=== PATIENT | male | born 1945 | race Caucasian/White ===

== ENCOUNTER → 2016-04-20 | Outpatient (CLI) | payer OTHER ==
[~2016-04-20] MED LIST: INDSR/120 PO; LISI-725 PO
[2016-04-20 12:26] LABS: HEMATOCRIT 44.4 % (42-52); MEAN CORPUSCULAR HEMOGLOBIN 30.9 pg (25-34); MEAN CORPUSCULAR HGB CONC 34.7 g/dl (32-36); MEAN PLATELET VOLUME 11.6 fL (7.4-10.4); PLATELET COUNT 227 K/uL (130-400); RED BLOOD COUNT 4.99 M/uL (4.7-6.1); WHITE BLOOD COUNT 5.82 K/uL (4.8-10.8)
[2016-04-20 13:13] LABS: ESTIMATED AVERAGE GLUCOSE 120 mg/dl; HA1C FLAG Normal (Normal)
[2016-04-20 13:46] LABS: ALKALINE PHOSPHATASE 88 U/L (45-117); ALT/SGPT 27 U/L (12-78); AST/SGOT 25 U/L (15-37); BLOOD UREA NITROGEN 15 mg/dl (7-18); BUN/CREATININE RATIO 18.1 (10-20); CARBON DIOXIDE 23 mmol/L (21-32); CHLORIDE 105 mmol/L (98-107); CREATININE 0.82 mg/dl (0.60-1.40); GLUCOSE 109 mg/dl (70-99); POTASSIUM 3.9 mmol/L (3.5-5.1); SODIUM 139 mmol/L (136-145)
[2016-04-20 13:58] LABS: CHOLESTEROL 123 mg/dl (0-200); CHOLESTEROL/HDL RATIO 3.5; HDL CHOLESTEROL 35 mg/dl; LDL CHOLESTEROL CALCULATED 36 mg/dl; TRIGLYCERIDES 258 mg/dl (0-150); VERY LOW DENSITY LIPOPROT CALC 52 mg/dl
== END | disposition home or self-care (01) ==
LOC: C.LABBFT 07:34
PROVIDERS: ATTEND Internal Medicine
DX: R73.01 Impaired fasting glucose (principal)

== ENCOUNTER → 2016-07-03 | Outpatient (CLI) | payer OTHER ==
--- NOTE | 2016-07-03 14:56 | DIAGNOSTIC IMAGING REPORT ---
CHEST 2 VIEWS ROUTINE CLINICAL HISTORY: COUGH dyspnea COMPARISON STUDY: None FINDINGS: Mild cardia megaly. Lungs are clear. Diaphragms smooth. Costophrenic angles are sharp. IMPRESSION: Mild cardiomegaly. Otherwise negative study Electronically signed by: Ruiz Mitchell M.D. 07/03/2016 2:54 PM Dictated Date/Time: 07/03/2016 2:53 PM
== END | disposition home or self-care (01) ==
LOC: C.RAD1850 14:22
PROVIDERS: ATTEND Internal Medicine
DX: R05 Cough (principal); I51.7 Cardiomegaly

== ENCOUNTER → 2016-11-13 | Outpatient (CLI) | payer OTHER ==
[2016-11-13 12:33] LABS: HEMATOCRIT 47.7 % (42-52); MEAN CELL VOLUME 89.5 fL (80-100); MEAN CORPUSCULAR HGB CONC 34.6 g/dl (32-36); PLATELET COUNT 252 K/uL (130-400); RED BLOOD COUNT 5.33 M/uL (4.7-6.1); WHITE BLOOD COUNT 6.71 K/uL (4.8-10.8)
[2016-11-13 12:48] LABS: ESTIMATED AVERAGE GLUCOSE 123 mg/dl; HA1C FLAG Normal (Normal)
[2016-11-13 12:52] LABS: ALT/SGPT 35 U/L (12-78); AST/SGOT 31 U/L (15-37); BLOOD UREA NITROGEN 16 mg/dl (7-18); BUN/CREATININE RATIO 17.3 (10-20); CALCIUM 9.3 mg/dl (8.5-10.1); CARBON DIOXIDE 27 mmol/L (21-32); CHLORIDE 104 mmol/L (98-107); CREATININE 0.93 mg/dl (0.60-1.40); GLUCOSE 114 mg/dl (70-99); SODIUM 138 mmol/L (136-145)
[2016-11-13 13:03] LABS: ALB/GLOB RATIO 0.9 (0.9-2); ALKALINE PHOSPHATASE 101 U/L (45-117); CHOLESTEROL 190 mg/dl (0-200); CHOLESTEROL/HDL RATIO 6.1; HDL CHOLESTEROL 31 mg/dl; TRIGLYCERIDES 422 mg/dl (0-150)
== END | disposition home or self-care (01) ==
LOC: C.LABBFT 07:41
PROVIDERS: ATTEND Internal Medicine
DX: E78.5 Hyperlipidemia, unspecified (principal); E03.9 Hypothyroidism, unspecified; R73.01 Impaired fasting glucose; Z12.5 Encounter for screening for malignant neoplasm of prostate; I10 Essential (primary) hypertension

== ENCOUNTER → 2017-06-10 | Outpatient (CLI) | payer OTHER ==
[2017-06-10 17:08] LABS: ALBUMIN 3.3 gm/dl (3.4-5.0); ALT/SGPT 29 U/L (12-78); BLOOD UREA NITROGEN 17 mg/dl (7-18); CALCIUM 9.1 mg/dl (8.5-10.1); CARBON DIOXIDE 30 mmol/L (21-32); CHOLESTEROL 160 mg/dl (0-200); GLUCOSE 103 mg/dl (70-99); POTASSIUM 4.2 mmol/L (3.5-5.1); SODIUM 135 mmol/L (136-145)
[2017-06-10 17:18] LABS: ALKALINE PHOSPHATASE 110 U/L (45-117); AST/SGOT 24 U/L (15-37); TOTAL PROTEIN 9.2 gm/dl (6.4-8.2)
[2017-06-11 07:31] LABS: HEMOGLOBIN A1C 6.3 % (4.5-5.6)
== END | disposition home or self-care (01) ==
LOC: C.LABBFT 14:09
PROVIDERS: ATTEND Internal Medicine
DX: E78.5 Hyperlipidemia, unspecified (principal); E03.9 Hypothyroidism, unspecified; R73.01 Impaired fasting glucose

== ENCOUNTER 2024-02-17 16:59 | Inpatient (IN) ==
--- NOTE | 2024-02-17 17:25 | Emergency Department Note ---
Impression & Plan Left inguinal hernia, Hypoxia ED Provider Note Provider: Manoj Toney MD CHIEF COMPLAINT: Stool issues HISTORY OF PRESENT ILLNESS: Patient is a 78-year-old gentleman history of A-fib on Eliquis, hypertension, hypothyroidism, and chronic lower extremity swelling on furosemide presenting here today referred from the outpatient clinic. Patient evidently over the past week or so initially had some constipation issues. Has had some nausea and vomiting at times. Has been trying to maintain good hydration utilizing [id number] laxative/MiraLAX, prune juice, and fiber with only some small liquid stool passing. Does report he said some chronic swelling in his legs as well as some testicular swelling. Family state this has been ongoing for some time and maybe little better than normal. No significant chest pain or fevers reported. No trauma reported. Has lost over 10 pounds in the past week or so. Has been hydrating well but cannot really eat solid foods. Denies cough or cold symptoms. Prior appendectomy reported but no other significant abdominal surgeries and no history of bowel obstruction reported. Referred here with concern for possible obstruction. PAST MEDICAL HISTORY: As noted above MEDICATIONS: Reviewed home medications SOCIAL HISTORY: PHYSICAL EXAM: GENERAL: alert and oriented in no acute distress on stretcher Head: normocephalic and atraumatic EYES: No injection, discharge or icterus. NECK: Trachea midline. ENT: Mucous membranes pink and moist. LUNGS: Airway patent. No retractions. Breath sounds clear with good air entry bilaterally. HEART: Regular rate and rhythm. No chest wall tenderness ABDOMEN: Soft and non-tender, without guarding or rebound. No significant peritonitis. Large swelling of the scrotum appreciable but not particularly tender. SKIN: Acyanotic, warm,without rashes EXTREMITIES: Without tenderness or deformity with 1-2+ edema the bilateral lower extremities. NEUROLOGICAL: No focal deficits. No aphasia. No facial droop or slurred speech. Ambulatory. EK bpm atrial fibrillation with right bundle branch block. No acute ST segment elevation with nonspecific T wave changes and a QTc of 484. CONTINUOUS CARDIAC MONITORING: was ordered and showed a heart rate of 70s-80s bpm in atrial fibrillation Patient's laboratory studies and imaging reviewed. Differential includes Appendicitis (although reports prior removal) , testicular torsion, infections, diverticulitis, UTI, obstruction, mesenteric ischemia, aortic pathology, inflammatory bowel disease, renal colic, PUD, pancreatitis, biliary pathology, hernia, volvulus, constipation, as well as other pathologies. IMPRESSION/MEDICAL DECISION MAKING: Patient well-appearing in no distress. Hypertensive here but not hypoxic, tachycardic, or febrile. Has had about a week constipation with nausea and vomiting not tolerating food 0 well but has been able to take his meds. Mild abdominal discomfort at times but not severe and not particularly tender. Some chronic swelling that he relates not particular worse lower extremities and scrotum. Will obtain CT of the abdomen pelvis and basic blood work. Blood work here without severe electrolyte abnormality or signs of renal dysfunction. No significant transaminitis or lipase elevations doubt hepatitis or pancreatitis. Troponin normal. BNP minimally elevated 184. No significant anemia noted today or leukocytosis on CBC. Sent for abdominal CT and per radiology report shows a left inguinal hernia mild inflammatory change without bowel obstruction. No pneumatosis is reported. Mild left hydroureter/hydronephrosis from the hernia with cholelithiasis. This likely explains a fair amount of the scrotal swelling the patient is complaining of. Little bit of borderline hypoxia while he was here likely positioning related as he did not receive narcotics. Anticoagulated doubt VTE. Doubt pneumonia but a chest x-ray was obtained to exclude this and do not see it based on my interpretation. Did discuss with Dr. Richardson general surgery the CT findings of a large hernia. Again does not seem incarcerated or strangulated at this point no obstruction. Certainly this large hernia and changes of positioning could cause ongoing issues. Given his issues with tolerating oral intake and again this borderline hypoxia here today we will bring into the medical service for optimization. Did attempt to reposition the patient in bed. Do question if there is a touch of fluid overload for the patient on x-ray. Will need to hold his anticoagulation for possible surgical intervention. DIAGNOSIS: Left inguinal hernia, hypoxia, A-fib, long-term anticoagulation DISPOSITION: Hospitalist will evaluate Patient was agreeable with this plan. Past Med/Surg History Problem List (Updated 02/17/24 @ 21:13 by Mayte Salinas MD) Hydronephrosis Hypoxia (Acute) Left inguinal hernia (Acute) Elderly person living alone At risk for self-care problem Hypercalcemia Atrial fibrillation (Chronic) Hypertension (Chronic) Hypercholesteremia (Chronic) Hypothyroidism (Chronic) Impaired fasting glucose (Chronic) Bilateral lower extremity edema Daytime somnolence Venous insufficiency of both lower extremities Learning difficulty Medical History A-fib Benign familial tremor Distal radius fracture, left Dyslipidemia Hand laceration Hyperglobulinemia Hyperlipidemia Hypertension Hypothyroidism Impaired fasting glucose Insomnia Night terror On anticoagulant therapy Onychomycosis Surgical History History of cataract surgery History of open reduction and internal fixation (ORIF) procedure History of tooth extraction History of tonsillectomy History of appendectomy Family History Brother Family history of diabetes mellitus Myocardial infarction Other No family history of adverse response to anesthesia Denies family history of Ovarian cancer Prostate cancer Breast cancer Colorectal cancer Social History Smoking Status: Never smoker Tobacco Type: Pipe and Smokeless Tobacco (Dip or Chew) Second Hand Exposure: No; Do You Dip or Chew Tobacco: No; Hx Alcohol Use: No Hx Substance Use: No Preferred Language: French Communication Ability: Effective Visual Impairment: No Limitations Hearing Ability: Normal Trimmer Climber Required: No Beliefs That Will Affect Care: None marital status: Single Current Living Situation: Alone Current Living Situation Comment: friend Rosi comes in during day, he is home alone at night current occupational status: retired 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 Feels Safe at Home: Yes Childhood Exposure to Second-Hand Smoke: Yes Diet: regular caffeine: Yes Dental Care, Regularly: Yes Physical Activity Frequency: Daily Seatbelt Use: always Sunscreen Use: No Assistive Devices: Denture - Upper, Denture - Lower and Glasses Allergies Allergies Allergy/AdvReac Type Severity Reaction Status Date / Time Penicillins Allergy Mild RASH Verified 02/06/24 14:12 Home Meds Home Medications Medication Instructions Recorded Confirmed multivitamin 1 tab PO QAM 11/05/18 02/17/24 Previous Rx's Medication Instructions Recorded fenofibrate nanocrystallized 48 mg 48 mg PO QAM #90 tabs 04/09/23 tablet (Tricor) metoprolol succinate 25 mg 25 mg PO DAILY #90 tabs 07/04/23 tablet,extended release 24 hr losartan 100 mg tablet 100 mg PO DAILY #90 tabs 07/18/23 levothyroxine 75 mcg tablet 75 mcg PO QAM #90 tabs 08/27/23 potassium chloride 10 mEq See Rx Instructions .Route 10/14/23 capsule,extended release .COMPLEX #90 caps amlodipine 5 mg tablet 5 mg PO DAILY 90 days #90 tabs 02/05/24 apixaban 5 mg tablet (Eliquis) 5 mg PO BID #180 tabs 02/05/24 rosuvastatin 20 mg tablet 20 mg PO DAILY #90 tabs 02/05/24 furosemide 40 mg tablet 40 mg PO BID edema #60 tabs 02/14/24 Results & Data (ED) Vital Signs Vital Signs - 24 hr 02/17/24 17:02 02/17/24 17:24 02/17/24 17:25 Temperature 36.6 C Temperature Source Temporal Artery Scan Pulse Rate 87 80 Pulse Rate [Left Apical] 95 H Pulse Rhythm Regular Respiratory Rate 18 18 20 Respiratory Effort / Characteristics Non-Labored Spontaneous Non-Labored Spontaneous Respiratory Depth Normal Normal Respiratory Pattern Regular Regular Blood Pressure 200/79 H Blood Pressure [Right Arm] 130/80 Blood Pressure Mean 119 Blood Pressure Mean [Right Arm] 96 Pulse Oximetry 95 93 94 Oxygen Delivery Method Room Air Room Air Room Air Oxygen Flow Rate Sepsis Recent Fever Within 48 Hours No Sepsis New/Unexplained Change in Mental Status No Sepsis Action Taken by Nursing No Action Required 02/17/24 17:27 02/17/24 17:35 02/17/24 17:57 Temperature Temperature Source Pulse Rate 94 H 101 H 96 H Pulse Rate [Left Apical] Pulse Rhythm Respiratory Rate 17 17 Respiratory Effort / Characteristics Respiratory Depth Respiratory Pattern Blood Pressure Blood Pressure [Right Arm] Blood Pressure Mean Blood Pressure Mean [Right Arm] Pulse Oximetry 92 90 Oxygen Delivery Method Room Air Room Air Oxygen Flow Rate Sepsis Recent Fever Within 48 Hours Sepsis New/Unexplained Change in Mental Status Sepsis Action Taken by Nursing 02/17/24 18:07 02/17/24 19:00 02/17/24 19:24 Temperature Temperature Source Pulse Rate 95 H 91 H Pulse Rate [Left Apical] Pulse Rhythm Respiratory Rate 20 17 Respiratory Effort / Characteristics Respiratory Depth Respiratory Pattern Blood Pressure 104/70 Blood Pressure [Right Arm] Blood Pressure Mean 78 Blood Pressure Mean [Right Arm] Pulse Oximetry 93 92 Oxygen Delivery Method Room Air Room Air Oxygen Flow Rate Sepsis Recent Fever Within 48 Hours Sepsis New/Unexplained Change in Mental Status Sepsis Action Taken by Nursing 02/17/24 19:29 02/17/24 19:30 02/17/24 19:33 Temperature Temperature Source Pulse Rate 81 Pulse Rate [Left Apical] Pulse Rhythm Respiratory Rate 16 Respiratory Effort / Characteristics Respiratory Depth Respiratory Pattern Blood Pressure 113/62 99/61 L Blood Pressure [Right Arm] Blood Pressure Mean 66 71 Blood Pressure Mean [Right Arm] Pulse Oximetry 90 Oxygen Delivery Method Room Air Oxygen Flow Rate Sepsis Recent Fever Within 48 Hours Sepsis New/Unexplained Change in Mental Status Sepsis Action Taken by Nursing 02/17/24 19:45 02/17/24 19:54 02/17/24 19:57 Temperature Temperature Source Pulse Rate 72 87 70 Pulse Rate [Left Apical] Pulse Rhythm Respiratory Rate 18 21 19 Respiratory Effort / Characteristics Respiratory Depth Respiratory Pattern Blood Pressure Blood Pressure [Right Arm] Blood Pressure Mean Blood Pressure Mean [Right Arm] Pulse Oximetry 95 97 96 Oxygen Delivery Method Nasal Cannula Nasal Cannula Nasal Cannula Oxygen Flow Rate 2 2 2 Sepsis Recent Fever Within 48 Hours Sepsis New/Unexplained Change in Mental Status Sepsis Action Taken by Nursing 02/17/24 20:00 02/17/24 20:03 02/17/24 20:15 Temperature Temperature Source Pulse Rate 84 88 Pulse Rate [Left Apical] Pulse Rhythm Respiratory Rate 20 20 Respiratory Effort / Characteristics Respiratory Depth Respiratory Pattern Blood Pressure 114/71 Blood Pressure [Right Arm] Blood Pressure Mean 79 Blood Pressure Mean [Right Arm] Pulse Oximetry 93 93 Oxygen Delivery Method Nasal Cannula Nasal Cannula Oxygen Flow Rate 2 2 Sepsis Recent Fever Within 48 Hours Sepsis New/Unexplained Change in Mental Status Sepsis Action Taken by Nursing Laboratory Data 02/17/24 17:19 02/17/24 17:19 Lab Results 02/17/24 02/17/24 02/17/24 Range/Units 17:19 17:24 18:45 WBC 8.97 (4.8-10.8) K/ul RBC 4.95 (4.70-6.10) M/uL Hgb 15.5 (14.0-18.0) g/dl POC Hgb 15.0 (14.0-18.0) g/dl Hct 43.2 (42.0-52.0) % POC Hct 44 (42-52) % MCV 87.3 (80.0-100.0) fL MCH 31.3 (25.0-34.0) pg MCHC 35.9 (32.0-36.0) g/dL RDW Std Deviation 41.3 (36.4-46.3) fL RDW Coeff of Marion 13.1 (11.5-14.5) % Plt Count 326 (130-400) K/uL MPV 10.1 (9.4-12.4) fL Immature Gran % (Auto) 0.3 % Neut % (Auto) 70.7 % Lymph % (Auto) 19.6 % Mathews % (Auto) 7.0 % Eos % (Auto) 2.0 % Baso % (Auto) 0.4 % Neut # (Auto) 6.33 (1.40-6.50) K/uL Lymph # (Auto) 1.76 (1.20-3.40) K/uL Mathews # (Auto) 0.63 H (0.11-0.59) K/uL Eos # (Auto) 0.18 (0.00-0.50) K/uL Baso # (Auto) 0.04 (0.00-0.20) K/uL Immature Gran # (Auto) 0.03 (0.01-0.20) K/uL PT 11.4 (9.0-12.0) Seconds INR 1.1 (0.9-1.1) POC Sodium 136 (135-144) mmol/L Sodium 134 L (136-145) mmol/L POC Potassium 3.8 (3.3-5.0) mmol/L Potassium 3.9 (3.5-5.1) mmol/L POC Chloride 98 L (101-112) mmol/L Chloride 100 (98-107) mmol/L Carbon Dioxide 24 (21-32) mmol/L POC Total CO2 21 L (24-31) mmol/L Anion Gap 10 (3-11) POC Anion Gap 21.0 (16-25) mmol/L POC BUN 8 (7-18) mg/dl BUN 10 (6-23) mg/dl Creatinine 0.81 (0.6-1.4) mg/dl POC Creatinine 0.8 (0.6-1.3) mg/dl Est Cr Clr Drug Dosing 94.3 ml/min eGFR 90.25 BUN/Creatinine Ratio 12.3 (10-20) Glucose 124 H (70-99(Fasting)) mg/dl POC Glucose (other) 123 H (70-99) mg/dl Calcium 9.5 (8.6-10.3) mg/dl POC Ioniz Calcium Shanell 1.09 L (1.12-1.32) mmol/l Total Bilirubin 1.3 H (0.2-1.0) mg/dl AST 70 H (13-39) U/L ALT 32 (7-52) U/L Alkaline Phosphatase 73 (34-104) U/L Troponin I High Sens 16.6 (0-20) pg/ml B-Natriuretic Peptide 184 H (0-100) pg/ml Total Protein 8.0 (6.0-8.3) gm/dl Albumin 4.8 (3.4-5.0) gm/dl Globulin 3.2 (2.5-4.0) gm/dl Albumin/Globulin Ratio 1.5 (0.9-2) Lipase 15 (11-82) U/L SARS-CoV-2, RNA, NAAT NEGATIVE (NEGATIVE) Administered Medications Lactated Ringer's (Lr) 500 mls @ 80 mls/hr IV .Q6H15M GIGI Stop: 03/18/24 20:14 Last Admin: 02/17/24 21:42 Dose: 80 mls/hr Documented By: KRIS Discontinued Medications Lactated Ringer's (Lr) 1,000 mls @ 999 mls/hr IV .Q1H1M ONE Stop: 02/17/24 21:10 Last Admin: 02/17/24 20:24 Dose: Not Given Documented By: ELODIA Ioversol (Optiray 320 100ml) 94 ml IV ONCE ONE Stop: 02/17/24 17:44 Last Admin: 02/17/24 17:43 Dose: 94 ml Documented By: REED Ondansetron HCl (Ondansetron Inj 2 Mg/Ml 2 Ml Vial) 4 mg IV NOW STA Stop: 02/17/24 17:23 Last Admin: 02/17/24 17:28 Dose: 4 mg Documented By: CONG Imaging Data Radiologist's Impression: Abdomen/Pelvis CT 02/17/24 17:15 EXAMINATION: Abdomen and pelvis CT with CLINICAL HISTORY: Vomiting, diarrhea, swelling testicles PRIORS: None TECHNIQUE: Contiguous axial images were obtained through the abdomen and pelvis with the use of intravenous contrast. Sagittal and coronal reformations are supplied. FINDINGS: Mild hypoventilatory changes at the lung bases. The liver, portal vein, pancreas, spleen, adrenals, aorta and IVC are morphologically unremarkable. Stomach underdistended. Advanced atherosclerotic disease of the abdominal aorta is noted. At least 1 gallstone is identified in the gallbladder lumen, within the neck, image 112, series 3. Mild left hydronephrosis and hydroureter present. No obstructing left renal calculus. The distal ureter is being compressed by a loop of bowel within a extremely large left inguinal hernia. The large inguinal hernia is identified on image 408, series 3, containing multiple loops of bowel, mesenteric fat, blood vessels and mild inflammatory change. No dilated loops of bowel at this time. Small amount of fluid present within the herniated fat. No bowel wall pneumatosis. Small contralateral right inguinal hernia containing fat noted. Urinary bladder partly distended and displaced to the right of midline, image 303, series 3. A large amount of formed stool throughout the colon. No inflammatory change in the right lower quadrant. No ascites or extraluminal gas. No small bowel obstruction. In bone windows, moderate to advanced degenerative change throughout the lumbar spine. IMPRESSION: 1. Large left inguinal hernia containing mesenteric fat, blood vessels, loops of bowel, with mild inflammatory change in the hernia. No bowel obstruction at this time. Surgical consultation is suggested. 2. Left distal ureter compression due to the left inguinal hernia and herniated loops of bowel, creating mild left hydronephrosis and hydroureter. 3. Cholelithiasis ACT 112: Positive. There are findings on this examination that require communication between the performing entity and the patient following Patient Test Result Information Act ([place] ACT 112) guidelines. Electronically signed by Masha Knox 02-17-2024 6:19 PM Chest X-Ray 02/17/24 18:23 EXAM: X-ray chest one-view portable CLINICAL HISTORY: Swelling PRIORS: 11/04/2018 TECHNIQUE: Portable AP upright chest FINDINGS: Patient is markedly rotated with diminished lung volumes, limiting interpretation. Allowing for this, airspace consolidation, effusion or congestive changes. Cardiac silhouette enlarged, unchanged. No pneumothorax. Trachea is patent. Osseous structures demonstrate no acute abnormality. No radiopaque foreign body. IMPRESSION: No plain film evidence of an acute cardiopulmonary process. Electronically signed by Masha Knox 02-17-2024 6:53 PM Discharge Plan Visit Data Chief Complaint: GI Assessment Stated Complaint: BOWEL DIARREHEA,SENT BY PROVIDER ED Provider: Manoj Toney Discharge Problem: Left inguinal hernia, Hypoxia Patient Disposition: Admitted As Inpatient Discharge Instructions Interventions: ED Discharge Assessment Last Done: 02/17/24 21:00
[2024-02-17] MEDS: ONDANSETRON INJ 2 MG/ML 2 ML VIAL IV STA (17:28)
[2024-02-17 17:31] LABS: Basophils # (auto) 0.04 K/uL (0.00-0.20); Basophils % (auto) 0.4 %; Eosinophils # (auto) 0.18 K/uL (0.00-0.50); Hematocrit (blood only) 43.2 % (42.0-52.0); Hemoglobin 15.5 g/dl (14.0-18.0); Immature Granulocytes # (auto) 0.03 K/uL (0.01-0.20); Immature Granulocytes % (auto) 0.3 %; Lymphocytes # (auto) 1.76 K/uL (1.20-3.40); Lymphocytes % (auto) 19.6 %; Mean Corpuscular Hemoglobin 31.3 pg (25.0-34.0); Mean Corpuscular Hgb Conc 35.9 g/dL (32.0-36.0); Mean Corpuscular Volume 87.3 fL (80.0-100.0); Mean Platelet Volume 10.1 fL (9.4-12.4); Monocytes # (auto) 0.63 K/uL (0.11-0.59); Neutrophils # (auto) 6.33 K/uL (1.40-6.50); Neutrophils % (auto) 70.7 %; Platelet Count 326 K/uL (130-400); RDW Coefficient of Variation 13.1 % (11.5-14.5); RDW Standard Deviation 41.3 fL (36.4-46.3); Red Blood Count 4.95 M/uL (4.70-6.10); White Blood Count 8.97 K/ul (4.8-10.8)
[2024-02-17 17:36] LABS: iSTAT Creatinine 0.8 mg/dl (0.6-1.3); iSTAT Ionized Calcium 1.09 mmol/l (1.12-1.32); iSTAT Potassium 3.8 mmol/L (3.3-5.0)
[2024-02-17] MEDS: OPTIRAY 320 100ml IV ONE (17:43)
[2024-02-17 17:50] LABS: Albumin Globulin Ratio 1.5 (0.9-2); Albumin Level 4.8 gm/dl (3.4-5.0); BUN Creatinine Ratio 12.3 (10-20); Bilirubin,Total 1.3 mg/dl (0.2-1.0); Calcium 9.5 mg/dl (8.6-10.3); Creatinine Clr Calc Pharmacy 94.3 ml/min; Globulin 3.2 gm/dl (2.5-4.0); Potassium 3.9 mmol/L (3.5-5.1)
[2024-02-17 17:56] LABS: Troponin I High Sensitivity 16.6 pg/ml (0-20)
[2024-02-17 17:58] LABS: INR 1.1 (0.9-1.1); Prothrombin Time 11.4 Seconds (9.0-12.0)
--- NOTE | 2024-02-17 18:20 | CT Scan Report ---
EXAMINATION: Abdomen and pelvis CT with CLINICAL HISTORY: Vomiting, diarrhea, swelling testicles PRIORS: None TECHNIQUE: Contiguous axial images were obtained through the abdomen and pelvis with the use of intravenous contrast. Sagittal and coronal reformations are supplied. FINDINGS: Mild hypoventilatory changes at the lung bases. The liver, portal vein, pancreas, spleen, adrenals, aorta and IVC are morphologically unremarkable. Stomach underdistended. Advanced atherosclerotic disease of the abdominal aorta is noted. At least 1 gallstone is identified in the gallbladder lumen, within the neck, image 112, series 3. Mild left hydronephrosis and hydroureter present. No obstructing left renal calculus. The distal ureter is being compressed by a loop of bowel within a extremely large left inguinal hernia. The large inguinal hernia is identified on image 408, series 3, containing multiple loops of bowel, mesenteric fat, blood vessels and mild inflammatory change. No dilated loops of bowel at this time. Small amount of fluid present within the herniated fat. No bowel wall pneumatosis. Small contralateral right inguinal hernia containing fat noted. Urinary bladder partly distended and displaced to the right of midline, image 303, series 3. A large amount of formed stool throughout the colon. No inflammatory change in the right lower quadrant. No ascites or extraluminal gas. No small bowel obstruction. In bone windows, moderate to advanced degenerative change throughout the lumbar spine. IMPRESSION: 1. Large left inguinal hernia containing mesenteric fat, blood vessels, loops of bowel, with mild inflammatory change in the hernia. No bowel obstruction at this time. Surgical consultation is suggested. 2. Left distal ureter compression due to the left inguinal hernia and herniated loops of bowel, creating mild left hydronephrosis and hydroureter. 3. Cholelithiasis ACT 112: Positive. There are findings on this examination that require communication between the performing entity and the patient following Patient Test Result Information Act ([place] ACT 112) guidelines. Electronically signed by Masha Knox 02-17-2024 6:19 PM
--- NOTE | 2024-02-17 18:53 | XRay Report ---
EXAM: X-ray chest one-view portable CLINICAL HISTORY: Swelling PRIORS: 11/04/2018 TECHNIQUE: Portable AP upright chest FINDINGS: Patient is markedly rotated with diminished lung volumes, limiting interpretation. Allowing for this, airspace consolidation, effusion or congestive changes. Cardiac silhouette enlarged, unchanged. No pneumothorax. Trachea is patent. Osseous structures demonstrate no acute abnormality. No radiopaque foreign body. IMPRESSION: No plain film evidence of an acute cardiopulmonary process. Electronically signed by Masha Knox 02-17-2024 6:53 PM
[2024-02-17] MEDS ORDERED: LACTATED RINGER'S 500 ML IV ONE (20:08)
--- NOTE | 2024-02-17 20:20 | History & Physical Report ---
Date of Service February 17, 2024 History of Present Illness Primary Care Provider: Gurmeet Burr DO Allergies Allergy/AdvReac Type Severity Reaction Status Date / Time Penicillins Allergy Mild RASH Verified 02/06/24 14:12 Home Medications Medication Instructions Recorded Confirmed Type multivitamin 1 tab PO QAM 11/05/18 02/17/24 History fenofibrate nanocrystallized 48 mg 48 mg PO QAM #90 tabs 04/09/23 02/17/24 Rx tablet (Tricor) metoprolol succinate 25 mg 25 mg PO DAILY #90 tabs 07/04/23 02/17/24 Rx tablet,extended release 24 hr losartan 100 mg tablet 100 mg PO DAILY #90 tabs 07/18/23 02/17/24 Rx levothyroxine 75 mcg tablet 75 mcg PO QAM #90 tabs 08/27/23 02/17/24 Rx potassium chloride 10 mEq See Rx Instructions .Route 10/14/23 02/17/24 Rx capsule,extended release .COMPLEX #90 caps amlodipine 5 mg tablet 5 mg PO DAILY 90 days #90 tabs 02/05/24 02/17/24 Rx apixaban 5 mg tablet (Eliquis) 5 mg PO BID #180 tabs 02/05/24 02/17/24 Rx rosuvastatin 20 mg tablet 20 mg PO DAILY #90 tabs 02/05/24 02/17/24 Rx furosemide 40 mg tablet 40 mg PO BID edema #60 tabs 02/14/24 02/17/24 Rx Past Med/Surg History Problem List (Updated 02/17/24 @ 18:57 by Manoj Toney M.D.) Hypoxia (Acute) Left inguinal hernia (Acute) Elderly person living alone At risk for self-care problem Hypercalcemia Atrial fibrillation (Chronic) Hypertension (Chronic) Hypercholesteremia (Chronic) Hypothyroidism (Chronic) Impaired fasting glucose (Chronic) Bilateral lower extremity edema Daytime somnolence Venous insufficiency of both lower extremities Learning difficulty Medical History A-fib Benign familial tremor Distal radius fracture, left Dyslipidemia Hand laceration Hyperglobulinemia Hyperlipidemia Hypertension Hypothyroidism Impaired fasting glucose Insomnia Night terror On anticoagulant therapy Onychomycosis Surgical History History of cataract surgery History of open reduction and internal fixation (ORIF) procedure History of tooth extraction History of tonsillectomy History of appendectomy Family History Brother Family history of diabetes mellitus Myocardial infarction Other No family history of adverse response to anesthesia Denies family history of Ovarian cancer Prostate cancer Breast cancer Colorectal cancer Social History Smoking Status: Never smoker Tobacco Type: Pipe and Smokeless Tobacco (Dip or Chew) Second Hand Exposure: Yes; Do You Dip or Chew Tobacco: No; Hx Alcohol Use: No Hx Substance Use: No Preferred Language: Polish Communication Ability: Effective Visual Impairment: No Limitations Hearing Ability: Normal Supervisor Special Effects Required: No Beliefs That Will Affect Care: None marital status: Single Current Living Situation: Alone Current Living Situation Comment: friend Rosi comes in during day, he is home alone at night current occupational status: retired 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 Feels Safe at Home: Yes Childhood Exposure to Second-Hand Smoke: Yes Diet: regular caffeine: Yes Dental Care, Regularly: Yes Physical Activity Frequency: Daily Seatbelt Use: always Sunscreen Use: No Assistive Devices: Denture - Upper, Denture - Lower and Glasses Results & Data Results & Data Vital Signs (Past 12 Hours) Vital Signs Temp Pulse Pulse Resp BP BP Pulse Ox 02/17/24 19:33 81 16 90 02/17/24 19:30 99/61 L 02/17/24 19:29 113/62 02/17/24 19:24 91 H 17 92 02/17/24 19:00 95 H 20 93 02/17/24 18:07 104/70 02/17/24 17:57 96 H 17 90 02/17/24 17:35 101 H 02/17/24 17:27 94 H 17 92 02/17/24 17:25 80 20 94 02/17/24 17:24 95 H 18 130/80 93 02/17/24 17:02 36.6 C 87 18 200/79 H 95 O2 Del Method 02/17/24 19:33 Room Air 02/17/24 19:30 02/17/24 19:29 02/17/24 19:24 Room Air 02/17/24 19:00 Room Air 11/25/24 18:07 02/17/24 17:57 Room Air 02/17/24 17:35 02/17/24 17:27 Room Air 02/17/24 17:25 Room Air 02/17/24 17:24 Room Air 02/17/24 17:02 Room Air Code Status & VTE Plan VTE Prophylaxis Plan VTE Prophylaxis will be ordered: Yes
[2024-02-17] MEDS: LACTATED RINGER'S 1,000 ML IV ONE (20:24)
--- NOTE | 2024-02-17 20:24 | Billing Data ---
Date of Service February 17, 2024 Coding Level of Care Code 67525 INT INP/OBS CARE
--- NOTE | 2024-02-17 20:24 | History & Physical Report ---
Date of Service February 17, 2024 Assessment & Plan (1) Hypoxia: (2) Left inguinal hernia: (3) Atrial fibrillation: (4) Hypercholesteremia: (5) Hypothyroidism: (6) Impaired fasting glucose: (7) Hydronephrosis: Plan 1. Left Inguinal Hernia - Significant Left sided inguinal hernia extending upto bottom of scrotum. - No features of Obstruction or Strangulation. - CT AP : Left sided inguinal hernia with inflammation, no feature of bowel obstruction Left mild hydronephrosis, obstruction of left ureter Cholelithiasis - Lab: CBC/BMP: WNL Creatinine: WNL AST/ALT/Total bili: 70/32/1.3: Follow AM labs - Surgery consult with Dr. Richardson: Possible surgery - Formal surgery consult ordered. - Holding his Eliquis for possible surgery - Heparin deferred pending decision for surgery time. - Significant hernia and positional change predisposes him to obstruction or incarceration anytime, hence treating like bowel obstruction for now. - Tyelonol/ Zofran ordered - Morphine ordered for severe pain 2. Left Hydronephrosis - Mild, Secondary to Left ureteral compression by hernia. - Kidney function intact. Creatinine WNL. - As per 1. 3. Afib with Normal VR - Afib with NVR. - Rate below 100 - Under Eliquis and metoprolol. - Eliquis on hold for possible surgery. Metoprolol continued. Change to IV in case of charlie obstruction. - Decide for heparin once surgery time is finalized. 4. HTN - Blood pressure on lower range on ED today. - Home meds: Losartan 100 Once daily and Amlodipine 5 mg Once daily - Losartan held for possible surgery. 5. Other chronic issues( regular outpatient management) Hyperlipidemia: Continue Rosuvastatin 20 mg once daily Hypothyroidism: Continue levothyroxine 75 mg once daily, TSH( 02/02): 1.9 Glucose intolerance: HBA1C( 02/02): 5.8 Venous insufficiency BL LL: S/P GSV adhesive ablation ( 2022) ; Stable at present, no ulcers Dispo: Admit Med/ Surg Tele DVT prophylaxis: No pharmacologic for possible surgery, SCDs Diet: NPO 2 midnight rule History of Present Illness Chief Complaint: Constipation for 1 week Primary Care Provider: Gurmeet Burr DO Mr. Richardson is a 78 year old Male, with P/M/H of Hypertension, Atrial fibrillation, Hyperlipidemia, Glucose intolerance, Venous insufficiency of BL lower limbs( S/P Ablation procedure on 2022). He presented to ED after being referred by his PCP for suspicion of bowel obstruction today. Presented to PCP office with H/o Constipation for 1 week. He says he is passing small pallets of stool but not good bowel movements like his baseline. Since same duration, his appetite has decreased and so the weight. He lost 10 pounds during this duration. He does not feel that his belly is abnormally distended compared to baseline. He is taking only liquid diet as he could not tolerate solids, which makes him more uncomfortable. He tried all possible OTC medicine including laxative/MiraLAX, fiber and prune juice. Nothing helped him clear his bowel. Endorses nausea and vomiting as well. He has swelling in his groin and scrotum, which is there since long time. He has not seeked any medical attention for this in past. Denies belly pain, fever, SOB, chest pain, back pain, syncope, bloody stool. . No similar episodes in past. His daughter on bedside mentions that he has been under adult diaper since long time for urine incontinence, No h/o trauma, no urinary surgery. He took all his medicine including Eliquis this morning, has been NPO after coming to hospital. Discussed about code status, he says he is fine with chest compression and medicine but not machines for saving life. PMH: Reviewed as above Surgical : H/O appendectomy, Wrist surgery, Venous GSV adhesive ablation (2022) Medication history: Reviewed Allergies Allergy/AdvReac Type Severity Reaction Status Date / Time Penicillins Allergy Mild RASH Verified 02/06/24 14:12 Home Medications Medication Instructions Recorded Confirmed Type multivitamin 1 tab PO QAM 11/05/18 02/17/24 History fenofibrate nanocrystallized 48 mg 48 mg PO QAM #90 tabs 04/09/23 02/17/24 Rx tablet (Tricor) metoprolol succinate 25 mg 25 mg PO DAILY #90 tabs 07/04/23 02/17/24 Rx tablet,extended release 24 hr losartan 100 mg tablet 100 mg PO DAILY #90 tabs 07/18/23 02/17/24 Rx levothyroxine 75 mcg tablet 75 mcg PO QAM #90 tabs 08/27/23 02/17/24 Rx potassium chloride 10 mEq See Rx Instructions .Route 10/14/23 02/17/24 Rx capsule,extended release .COMPLEX #90 caps amlodipine 5 mg tablet 5 mg PO DAILY 90 days #90 tabs 02/05/24 02/17/24 Rx apixaban 5 mg tablet (Eliquis) 5 mg PO BID #180 tabs 02/05/24 02/17/24 Rx rosuvastatin 20 mg tablet 20 mg PO DAILY #90 tabs 02/05/24 02/17/24 Rx furosemide 40 mg tablet 40 mg PO BID edema #60 tabs 02/14/24 02/17/24 Rx Past Med/Surg History Problem List (Updated 02/17/24 @ 21:13 by Mayte Salinas MD) Hydronephrosis Hypoxia (Acute) Left inguinal hernia (Acute) Elderly person living alone At risk for self-care problem Hypercalcemia Atrial fibrillation (Chronic) Hypertension (Chronic) Hypercholesteremia (Chronic) Hypothyroidism (Chronic) Impaired fasting glucose (Chronic) Bilateral lower extremity edema Daytime somnolence Venous insufficiency of both lower extremities Learning difficulty Medical History A-fib Benign familial tremor Distal radius fracture, left Dyslipidemia Hand laceration Hyperglobulinemia Hyperlipidemia Hypertension Hypothyroidism Impaired fasting glucose Insomnia Night terror On anticoagulant therapy Onychomycosis Surgical History History of cataract surgery History of open reduction and internal fixation (ORIF) procedure History of tooth extraction History of tonsillectomy History of appendectomy Family History Brother Family history of diabetes mellitus Myocardial infarction Other No family history of adverse response to anesthesia Denies family history of Ovarian cancer Prostate cancer Breast cancer Colorectal cancer Social History Smoking Status: Never smoker Tobacco Type: Pipe and Smokeless Tobacco (Dip or Chew) Second Hand Exposure: Yes; Do You Dip or Chew Tobacco: No; Hx Alcohol Use: No Hx Substance Use: No Preferred Language: Welsh Communication Ability: Effective Visual Impairment: No Limitations Hearing Ability: Normal 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 Beliefs That Will Affect Care: None marital status: Single Current Living Situation: Alone Current Living Situation Comment: friend Rosi comes in during day, he is home alone at night current occupational status: retired 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 No rhonchi, wheezes, or crackles. No increased work of breathing GI: Soft, Nondistended, Nontender, Normal Bowel sounds + Genitourinary: Significant swelling in left inguinal area increases on cough, non tender, left scrotum swollen increases on cough as well, non tender MSK: No gross deformities noted Skin: Warm, Dry, Dermatitis noted on face, discoloration on BL LL Neuro: Alert, Oriented to TPP, No Focal deficit Psych: Mood and Affect congruent, Cooperative on exam Results & Data Results & Data Vital Signs (Past 12 Hours) Vital Signs Temp Pulse Pulse Resp BP BP Pulse Ox 02/17/24 19:33 81 16 90 02/17/24 19:30 99/61 L 02/17/24 19:29 113/62 02/17/24 19:24 91 H 17 92 02/17/24 19:00 95 H 20 93 02/17/24 18:07 104/70 02/17/24 17:57 96 H 17 90 02/17/24 17:35 101 H 02/17/24 17:27 94 H 17 92 02/17/24 17:25 80 20 94 02/17/24 17:24 95 H 18 130/80 93 02/17/24 17:02 36.6 C 87 18 200/79 H 95 O2 Del Method 02/17/24 19:33 Room Air 02/17/24 19:30 02/17/24 19:29 02/17/24 19:24 Room Air 02/17/24 19:00 Room Air 02/17/24 18:07 02/17/24 17:57 Room Air 02/17/24 17:35 02/17/24 17:27 Room Air 02/17/24 17:25 Room Air 02/17/24 17:24 Room Air 02/17/24 17:02 Room Air Code Status & VTE Plan VTE Prophylaxis Plan VTE Prophylaxis will be ordered: Yes Supervising Physician Co-Signing Physician Notes Chris Richardson is a 78-year-old male with a past medical history of Afib, HTN, HLD, venous insufficiency Presents with nausea/vomiting, constipation, weight loss, and intolerance to solid food. Was recommended for ER evaluation for bowel obstruction. CT does show a large hernia. This was discussed with general surgery. Patient was recommended for medical admission and optimization with surgical consultation. Anticoagulation is held pending surgical intervention. Abd soft, NT. + large left inguinal hernia. Nontender to palpation. No concerns at bedside. No evidence of acute incarceration at bedside exam. Large inguinal hernia - CTA/P: Large left inguinal hernia with mesenteric fat, blood vessel, loops of bowel, mild inflammatory change. No evidence of obstruction. Surgical consultation is recommended. Left distal ureter compressed due to left inguinal hernia creating mild left hydro nephrosis and hydroureter. Cholelithiasis. N.p.o., IV FM Hold anticoagulation Tylenol, Zofran, breakthrough morphine as needed General Surgery consulted and following. Hydronephrosis Likely due to obstruction due to hernia, surgery consulted as above No RASHMI Atrial fibrillation Did take Eliquis late this morning EKG A-fib with right bundle branch block. Patient is on Eliquis for his A-fib. This is held pending surgical evaluation. If no immediate surgical invention is anticipated then can start heparin low-dose no bolus therapy tomorrow morning at 9 AM and pause prior to surgery if/when scheduled Hypertension Amlodipine, metoprolol continued Lasix held while n.p.o. and on fluids. Losartan held pending surgical evaluation If patient becomes obstructed and needs strict n.p.o. and convert metoprolol to 2.5 mg p.o. every 6 hours to prevent beta-brianne withdrawal Hyperlipidemia Continue statin Hypothyroidism Continue Synthroid Impaired fasting glucose Last A1c 5.8%. BSG AC/at bedtime if needed once diet advanced. BSG currently adequately controlled without any antiglycemic's N.p.o. plus meds
[2024-02-17] MEDS ORDERED: ONDANSETRON INJ 2 MG/ML 2 ML VIAL IV PRN (21:25)
[2024-02-17] MEDS ORDERED: ACETAMINOPHEN 325 MG TAB PO PRN (21:25)
[2024-02-17] MEDS: LACTATED RINGER'S 500 ML IV SCH (21:42)
[2024-02-18] MEDS: LEVOTHYROXINE SODIUM 75 MCG TABLET PO SCH (05:44)
[2024-02-18 06:28] LABS: Basophils # (auto) 0.03 K/uL (0.00-0.20); Basophils % (auto) 0.4 %; Eosinophils # (auto) 0.28 K/uL (0.00-0.50); Eosinophils % (auto) 4.2 %; Hematocrit (blood only) 39.7 % (42.0-52.0); Hemoglobin 14.1 g/dl (14.0-18.0); Immature Granulocytes # (auto) 0.02 K/uL (0.01-0.20); Immature Granulocytes % (auto) 0.3 %; Lymphocytes # (auto) 1.53 K/uL (1.20-3.40); Lymphocytes % (auto) 22.9 %; Mean Corpuscular Hemoglobin 31.8 pg (25.0-34.0); Mean Corpuscular Hgb Conc 35.5 g/dL (32.0-36.0); Mean Corpuscular Volume 89.6 fL (80.0-100.0); Mean Platelet Volume 10.6 fL (9.4-12.4); Monocytes # (auto) 0.56 K/uL (0.11-0.59); Monocytes % (auto) 8.4 %; Neutrophils # (auto) 4.27 K/uL (1.40-6.50); Neutrophils % (auto) 63.8 %; Platelet Count 244 K/uL (130-400); RDW Coefficient of Variation 13.2 % (11.5-14.5); RDW Standard Deviation 43.2 fL (36.4-46.3); Red Blood Count 4.43 M/uL (4.70-6.10); White Blood Count 6.69 K/ul (4.8-10.8)
[2024-02-18 06:53] LABS: Albumin Globulin Ratio 1.3 (0.9-2); Albumin Level 3.8 gm/dl (3.4-5.0); Bilirubin,Total 1.1 mg/dl (0.2-1.0); Calcium 8.7 mg/dl (8.6-10.3); Potassium 3.7 mmol/L (3.5-5.1); Total Protein 6.8 gm/dl (6.0-8.3)
[2024-02-18] MEDS: PANTOprazole 40 MG/10 ML SYR IV SCH (09:27)
[2024-02-18] MEDS: amLODIPine BESYLATE 5 MG TAB PO SCH (09:27)
[2024-02-18] MEDS: METOPROLOL SUCC 25MG EXT REL TAB PO SCH (09:27)
--- NOTE | 2024-02-18 11:38 | Hospitalist Progress Note ---
Date of Service February 18, 2024 Assessment & Plan (1) Hypoxia: Plan: Appears to be due to obesity and atelectasis. Incentive spirometry ordered. Will wean off oxygen as tolerated (2) Left inguinal hernia: Plan: With scrotal involvement. This has been present for quite some time. There is no evidence of bowel obstruction. General surgery consultation appreciated. No indication for emergent surgery at this time. However, this should be repaired on an elective basis as soon as possible (3) Atrial fibrillation: Plan: Chronic. Continue Eliquis therapy since surgery is not needed at this moment. Continue rate control with current medication (4) Hypercholesteremia: Plan: Stable. Continue statin therapy (5) Hypothyroidism: Plan: Stable. Continue replacement therapy (6) Hydronephrosis: Plan: He probably chronic. Serial labs. Monitor intake and output Plan Hopeful discharge to home tomorrow, February 18 Admission and Anticipated Discharge Date Admission Date: February 17, 2024 Subjective Alert and stable. is at the bedside. I discussed the case with surgery who does not feel there is any indication for emergent operative intervention on his large left inguinal hernia which is involving the scrotum. This is not new. There is no bowel obstruction evident. Full liquid diet has been started and IV fluids tapered down further. Hypoxia is probably from atelectasis. Incentive spirometry ordered. Will wean off oxygen as tolerated. OT and PT assessments ordered. Hopefully he can go home tomorrow, February 18, and pursue elective repair of the large left inguinal hernia. Review of Systems 2 Review of Systems: Constitutionalno fever or chills ENTno blurred vision, no double vision, no epistaxis, no sore throat Respiratoryno cough, no wheezing, no shortness of breath Cardiacno palpitations, no chest pain, no syncope Willa nausea, vomiting, diarrhea, melena, hematochezia. He has had some constipation but is now moving his bowels GUno urinary retention, no urinary incontinence, no dysuria, no hematuria Musculoskeletalno joint pain, no muscle tenderness Skinno bruising, no rashes, no pruritus Neurono isolated weakness, no paresthesia, no weakness Psychno depression, no anxiety Physical Exam 2 Physical Exam: General-alert and oriented x3, no fever, no chills. Obese HEENT-head atraumatic and normocephalic, pupils equal and reactive to light, extraocular muscles intact Neck-no lymphadenopathy or thyromegaly, trachea midline Chest-clear to auscultation. No rales, wheezing or rhonchi Cardiac-regular rate and rhythm, normal S1 and S2 Abdomen-normal bowel sounds, no hepatosplenomegaly. Massive left inguinal hernia with scrotal involvement. Extremities-no cyanosis, clubbing. Chronic appearing bilateral lower extremity edema below the knees consistent with chronic venous insufficiency Neuro-cranial nerves II through XII intact, motor and sensory function within normal limits, strength symmetrical, no focal deficits Psych-normal affect, normal mood Results & Data Results & Data Vital Signs (Past 12 Hours) Vital Signs Temp Pulse Pulse Resp BP BP Pulse Ox 02/18/24 11: 37.0 C 55 L 18 142/74 H 95 02/18/24 08:10 36.5 C 78 18 126/73 97 02/18/24 07:27 70 02/18/24 04:00 36.5 C 76 16 120/61 97 02/18/24 00:17 36.7 C 68 16 137/70 97 O2 Del Method O2 Flow Rate 02/18/24 11:24 Nasal Cannula 2 02/18/24 08:10 Nasal Cannula 2 02/18/24 07:27 02/18/24 04:00 Nasal Cannula 2 02/18/24 00:17 Nasal Cannula 2 Laboratory Results 02/18/24 05:32 02/18/24 05:32 PG Care Time/CCT Total # of Minutes Spent Total Time Spent with Patient: Total time spent is greater than 50% in coordination of care (as documented) at patient's floor/unit and/or counseling patient: Coding Level of Care Code 54610 SUB INP/OBS CARE 3/50MIN Diagnoses Hypoxia R09.02 Left inguinal hernia K40.90 Atrial fibrillation I48.91 Hypercholesteremia E78.00 Hypothyroidism E03.9 Hydronephrosis N13.30
--- NOTE | 2024-02-18 12:11 | Surgery Consultation ---
Date of Consultation February 18, 2024 Assessment & Plan (1) Left inguinal hernia: (2) Atrial fibrillation: 78 year old morbidly obese male with afib on Eliquis, HTN, Hyperlipidemia, hypothyroidism, venous insufficiency who presented to ED with constipation and large scrotal left inguinal hernia. CT scan showing large hernia containing bowel and mesentery extending to scrotum however no signs of obstruction. He is passing gas and having bowel movements, no abdominal pain and is hungry. No leukocytosis. No emergent indication for hernia repair at this time as there is no obstruction. Given his obesity and multiple medical comorbidities and very large hernia he will require evaluation by hernia specialist ([facility]) for repair in near future. Okay to advance to liquids today and as tolerated. Outpatient surgical follow up with hernia specialist. Dr. Richardson has seen and examined patient, see addendum for further recommendations/Plan. History of Present Illness Reason for Consultation: Large left inguinal hernia containing bowel and mesentary Attending Physician: Louie Goss MD History of Present Illness Mr. Richardson is a 78 year old Male, with P/M/H of Hypertension, Atrial fibrillation, Hyperlipidemia, Glucose intolerance, Venous insufficiency of BL lower limbs( S/P Ablation procedure on 2022). He presented to ED after being referred by his PCP for suspicion of bowel obstruction . History of constipation for 1 week, bowels have not been moving regularly but able to have small pellet bowel movements. He tried all possible OTC medicine including laxative/MiraLAX, fiber and prune juice. Had nausea and vomiting as well. He has swelling in his groin and scrotum, which has been present for a very long time. He has not seeked any medical attention for this in past. Denies belly pain, fever, SOB, chest pain, back pain, syncope, bloody stool. Allergies Allergy/AdvReac Type Severity Reaction Status Date / Time Penicillins Allergy Mild RASH Verified 02/06/24 14:12 Home Medications Medication Instructions Recorded Confirmed Type multivitamin 1 tab PO QAM 11/05/18 02/17/24 History fenofibrate nanocrystallized 48 mg 48 mg PO QAM #90 tabs 04/09/23 02/17/24 Rx tablet (Tricor) metoprolol succinate 25 mg 25 mg PO DAILY #90 tabs 07/04/23 02/17/24 Rx tablet,extended release 24 hr losartan 100 mg tablet 100 mg PO DAILY #90 tabs 07/18/23 02/17/24 Rx levothyroxine 75 mcg tablet 75 mcg PO QAM #90 tabs 08/27/23 02/17/24 Rx potassium chloride 10 mEq See Rx Instructions .Route 10/14/23 02/17/24 Rx capsule,extended release .COMPLEX #90 caps amlodipine 5 mg tablet 5 mg PO DAILY 90 days #90 tabs 02/05/24 02/17/24 Rx apixaban 5 mg tablet (Eliquis) 5 mg PO BID #180 tabs 02/05/24 02/17/24 Rx rosuvastatin 20 mg tablet 20 mg PO DAILY #90 tabs 02/05/24 02/17/24 Rx furosemide 40 mg tablet 40 mg PO BID edema #60 tabs 02/14/24 02/17/24 Rx Patient History Medical History A-fib Benign familial tremor Distal radius fracture, left Dyslipidemia Hand laceration Hyperglobulinemia Hyperlipidemia Hypertension Hypothyroidism Impaired fasting glucose Insomnia Night terror On anticoagulant therapy Onychomycosis Surgical History History of cataract surgery History of open reduction and internal fixation (ORIF) procedure History of tooth extraction History of tonsillectomy History of appendectomy Family History Brother Family history of diabetes mellitus Myocardial infarction Other No family history of adverse response to anesthesia Denies family history of Ovarian cancer Prostate cancer Breast cancer Colorectal cancer Social History Smoking Status: Never smoker Tobacco Type: Pipe and Smokeless Tobacco (Dip or Chew) Second Hand Exposure: No; Do You Dip or Chew Tobacco: No; Hx Alcohol Use: No Hx Substance Use: No Preferred Language: [place] Communication Ability: Effective Visual Impairment: No Limitations Hearing Ability: Normal Cable Television Line Technician Required: No Beliefs That Will Affect Care: None marital status: Single Current Living Situation: Alone Current Living Situation Comment: friend Rosi comes in during day, he is home alone at night current occupational status: retired 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 Feels Safe at Home: Yes Childhood Exposure to Second-Hand Smoke: Yes Diet: regular caffeine: Yes Dental Care, Regularly: Yes Physical Activity Frequency: Daily Seatbelt Use: always Sunscreen Use: No Assistive Devices: Denture - Upper, Denture - Lower and Glasses Review of Systems Review of Systems: All systems reviewed & are unremarkable except as noted in HPI & below Physical Exam Constitutional: + morbidly obese, cooperative and comfor table; no acute distress and not ill appearing Respiratory: normal respiratory effort; no respiratory distress, no labored breathing and no retractions oxygen via nasal cannula Gastrointestinal (Abdomen): Inspection/Auscultation: abdomen normal to inspection and + visible herniation; abdomen not distended Percussion/Palpation: abdomen soft and + hernia; abdomen nontender, no guarding, abdomen not rigid and abdomen not firm Very large left inguinal hernia extending down to scrotum, unable to be reduced given size. Skin: no rashes, warm and dry Psychiatric: Orientation: alert and oriented x 3 Results & Data Vital Signs (Past 12 Hours) Vital Signs Temp Pulse Pulse Resp BP BP Pulse Ox 02/18/24 11: 37.0 C 55 L 18 142/74 H 95 02/18/24 08:10 36.5 C 78 18 126/73 97 02/18/24 07:27 70 02/18/24 04:00 36.5 C 76 16 120/61 97 02/18/24 00:17 36.7 C 68 16 137/70 97 O2 Del Method O2 Flow Rate 02/18/24 11:24 Nasal Cannula 2 02/18/24 08:10 Nasal Cannula 2 02/18/24 07:27 02/18/24 04:00 Nasal Cannula 2 02/18/24 00:17 Nasal Cannula 2 Laboratory Results 02/18/24 02/17/24 02/17/24 Range/Units 05:32 18:45 17:24 WBC 6.69 (4.8-10.8) K/ul RBC 4.43 L (4.70-6.10) M/uL Hgb 14.1 (14.0-18.0) g/dl POC Hgb 15.0 (14.0-18.0) g/dl Hct 39.7 L (42.0-52.0) % POC Hct 44 (42-52) % MCV 89.6 (80.0-100.0) fL MCH 31.8 (25.0-34.0) pg MCHC 35.5 (32.0-36.0) g/dL RDW Std Deviation 43.2 (36.4-46.3) fL RDW Coeff of [place] 13.2 (11.5-14.5) % Plt Count 244 (130-400) K/uL MPV 10.6 (9.4-12.4) fL Immature Gran % (Auto) 0.3 % Neut % (Auto) 63.8 % Lymph % (Auto) 22.9 % [place] % (Auto) 8.4 % Eos % (Auto) 4.2 % Baso % (Auto) 0.4 % Neut # (Auto) 4.27 (1.40-6.50) K/uL Lymph # (Auto) 1.53 (1.20-3.40) K/uL [place] # (Auto) 0.56 (0.11-0.59) K/uL Eos # (Auto) 0.28 (0.00-0.50) K/uL Baso # (Auto) 0.03 (0.00-0.20) K/uL Immature Gran # (Auto) 0.02 (0.01-0.20) K/uL PT (9.0-12.0) Seconds INR (0.9-1.1) POC Sodium 136 (135-144) mmol/L Sodium 138 (136-145) mmol/L POC Potassium 3.8 (3.3-5.0) mmol/L Potassium 3.7 (3.5-5.1) mmol/L POC Chloride 98 L (101-112) mmol/L Chloride 105 (98-107) mmol/L Carbon Dioxide 26 (21-32) mmol/L POC Total CO2 21 L (24-31) mmol/L Anion Gap 7 (3-11) POC Anion Gap 21.0 (16-25) mmol/L POC BUN 8 (7-18) mg/dl BUN 10 (6-23) mg/dl Creatinine 0.68 (0.6-1.4) mg/dl POC Creatinine 0.8 (0.6-1.3) mg/dl Est Cr Clr Drug Dosing 110.0 ml/min eGFR 95.14 BUN/Creatinine Ratio (10-20) Glucose (70-99(Fasting)) mg/dl POC Glucose (other) 123 H (70-99) mg/dl Fasting Glucose 96 (70-99) mg/dl Calcium 8.7 (8.6-10.3) mg/dl POC Ioniz Calcium Shanell 1.09 L (1.12-1.32) mmol/l Total Bilirubin 1.1 H (0.2-1.0) mg/dl AST 63 H (13-39) U/L ALT 28 (7-52) U/L Alkaline Phosphatase 60 (34-104) U/L Troponin I High Sens (0-20) pg/ml B-Natriuretic Peptide (0-100) pg/ml Total Protein 6.8 (6.0-8.3) gm/dl Albumin 3.8 (3.4-5.0) gm/dl Globulin 3.0 (2.5-4.0) gm/dl Albumin/Globulin Ratio 1.3 (0.9-2) Lipase (11-82) U/L SARS-CoV-2, RNA, NAAT NEGATIVE (NEGATIVE) 02/17/24 Range/Units 17:19 WBC 8.97 (4.8-10.8) K/ul RBC 4.95 (4.70-6.10) M/uL Hgb 15.5 (14.0-18.0) g/dl POC Hgb (14.0-18.0) g/dl Hct 43.2 (42.0-52.0) % POC Hct (42-52) % MCV 87.3 (80.0-100.0) fL MCH 31.3 (25.0-34.0) pg MCHC 35.9 (32.0-36.0) g/dL RDW Std Deviation 41.3 (36.4-46.3) fL RDW Coeff of [place] 13.1 (11.5-14.5) % Plt Count 326 (130-400) K/uL MPV 10.1 (9.4-12.4) fL Immature Gran % (Auto) 0.3 % Neut % (Auto) 70.7 % Lymph % (Auto) 19.6 % [place] % (Auto) 7.0 % Eos % (Auto) 2.0 % Baso % (Auto) 0.4 % Neut # (Auto) 6.33 (1.40-6.50) K/uL Lymph # (Auto) 1.76 (1.20-3.40) K/uL [place] # (Auto) 0.63 H (0.11-0.59) K/uL Eos # (Auto) 0.18 (0.00-0.50) K/uL Baso # (Auto) 0.04 (0.00-0.20) K/uL Immature Gran # (Auto) 0.03 (0.01-0.20) K/uL PT 11.4 (9.0-12.0) Seconds INR 1.1 (0.9-1.1) POC Sodium (135-144) mmol/L Sodium 134 L (136-145) mmol/L POC Potassium (3.3-5.0) mmol/L Potassium 3.9 (3.5-5.1) mmol/L POC Chloride (101-112) mmol/L Chloride 100 (98-107) mmol/L Carbon Dioxide 24 (21-32) mmol/L POC Total CO2 (24-31) mmol/L Anion Gap 10 (3-11) POC Anion Gap (16-25) mmol/L POC BUN (7-18) mg/dl BUN 10 (6-23) mg/dl Creatinine 0.81 (0.6-1.4) mg/dl POC Creatinine (0.6-1.3) mg/dl Est Cr Clr Drug Dosing 94.3 ml/min eGFR 90.25 BUN/Creatinine Ratio 12.3 (10-20) Glucose 124 H (70-99(Fasting)) mg/dl POC Glucose (other) (70-99) mg/dl Fasting Glucose (70-99) mg/dl Calcium 9.5 (8.6-10.3) mg/dl POC Ioniz Calcium Shanell (1.12-1.32) mmol/l Total Bilirubin 1.3 H (0.2-1.0) mg/dl AST 70 H (13-39) U/L ALT 32 (7-52) U/L Alkaline Phosphatase 73 (34-104) U/L Troponin I High Sens 16.6 (0-20) pg/ml B-Natriuretic Peptide 184 H (0-100) pg/ml Total Protein 8.0 (6.0-8.3) gm/dl Albumin 4.8 (3.4-5.0) gm/dl Globulin 3.2 (2.5-4.0) gm/dl Albumin/Globulin Ratio 1.5 (0.9-2) Lipase 15 (11-82) U/L SARS-CoV-2, RNA, NAAT (NEGATIVE) Diagnostic Findings EXAMINATION: Abdomen and pelvis CT with CLINICAL HISTORY: Vomiting, diarrhea, swelling testicles PRIORS: None TECHNIQUE: Contiguous axial images were obtained through the abdomen and pelvis with the use of intravenous contrast. Sagittal and coronal reformations are supplied. FINDINGS: Mild hypoventilatory changes at the lung bases. The liver, portal vein, pancreas, spleen, adrenals, aorta and IVC are morphologically unremarkable. Stomach underdistended. Advanced atherosclerotic disease of the abdominal aorta is noted. At least 1 gallstone is identified in the gallbladder lumen, within the neck, image 112, series 3. Mild left hydronephrosis and hydroureter present. No obstructing left renal calculus. The distal ureter is being compressed by a loop of bowel within a extremely large left inguinal hernia. The large inguinal hernia is identified on image 408, series 3, containing multiple loops of bowel, mesenteric fat, blood vessels and mild inflammatory change. No dilated loops of bowel at this time. Small amount of fluid present within the herniated fat. No bowel wall pneumatosis. Small contralateral right inguinal hernia containing fat noted. Urinary bladder partly distended and displaced to the right of midline, image 303, series 3. A large amount of formed stool throughout the colon. No inflammatory change in the right lower quadrant. No ascites or extraluminal gas. No small bowel obstruction. In bone windows, moderate to advanced degenerative change throughout the lumbar spine. IMPRESSION: 1. Large left inguinal hernia containing mesenteric fat, blood vessels, loops of bowel, with mild inflammatory change in the hernia. No bowel obstruction at this time. Surgical consultation is suggested. 2. Left distal ureter compression due to the left inguinal hernia and herniated loops of bowel, creating mild left hydronephrosis and hydroureter. 3. Cholelithiasis ACT 112: Positive. There are findings on this examination that require communication between the performing entity and the patient following Patient Test Result Information Act ([place] ACT 112) guidelines. I Personally reviewed CT scan images and concur with above findings.
--- NOTE | 2024-02-18 18:16 | Electrocardiogram Report ---
Test Reason : Blood Pressure : */* mmHG Vent. Rate : 93 BPM Atrial Rate : * BPM P-R Int : * ms QRS Dur : 144 ms QT Int : 390 ms P-R-T Axes : * 106 47 degrees QTcB Int : 484 ms Atrial fibrillation Right bundle branch block Abnormal ECG Confirmed by Bogdan Marti ([id number]) on 02/18/2024 6:16:32 PM Referred By: Confirmed By: Bogdan Marti
[2024-02-18] MEDS: APIXABAN 5 MG TABLET PO SCH (20:04)
[2024-02-19 07:31] LABS: Basophils # (auto) 0.05 K/uL (0.00-0.20); Basophils % (auto) 0.9 %; Eosinophils # (auto) 0.24 K/uL (0.00-0.50); Eosinophils % (auto) 4.3 %; Hematocrit (blood only) 38.6 % (42.0-52.0); Hemoglobin 13.7 g/dl (14.0-18.0); Immature Granulocytes # (auto) 0.02 K/uL (0.01-0.20); Immature Granulocytes % (auto) 0.4 %; Lymphocytes # (auto) 1.36 K/uL (1.20-3.40); Lymphocytes % (auto) 24.4 %; Mean Corpuscular Hemoglobin 32.1 pg (25.0-34.0); Mean Corpuscular Hgb Conc 35.5 g/dL (32.0-36.0); Mean Corpuscular Volume 90.4 fL (80.0-100.0); Mean Platelet Volume 10.6 fL (9.4-12.4); Monocytes # (auto) 0.48 K/uL (0.11-0.59); Monocytes % (auto) 8.6 %; Neutrophils # (auto) 3.43 K/uL (1.40-6.50); Neutrophils % (auto) 61.4 %; Platelet Count 209 K/uL (130-400); RDW Coefficient of Variation 13.1 % (11.5-14.5); RDW Standard Deviation 42.8 fL (36.4-46.3); Red Blood Count 4.27 M/uL (4.70-6.10); White Blood Count 5.58 K/ul (4.8-10.8)
[2024-02-19 07:55] LABS: Calcium 8.6 mg/dl (8.6-10.3); Potassium 3.7 mmol/L (3.5-5.1)
[2024-02-19 08:00] LABS: BUN Creatinine Ratio 13.1 (10-20); Creatinine Clr Calc Pharmacy 122.5 ml/min
--- NOTE | 2024-02-19 11:37 | Discharge Summary ---
Discharge Summary Date of Service February 19, 2024 Principal Dx & Hospital Course #1 = Principal Diagnosis (1) Hypoxia: Appears to be due to obesity and atelectasis. Incentive spirometry ordered. Wean off oxygen as tolerated (2) Left inguinal hernia: With scrotal involvement. This has been present for quite some time. There is no evidence of bowel obstruction. General surgery consultation appreciated. No indication for emergent surgery at this time. However, this should be repaired on an elective basis as soon as possible. He was instructed to follow-up with his PCP as soon as possible for referral to general surgeon for elective hernia repair (3) Atrial fibrillation: Chronic. Continue Eliquis therapy since surgery is not needed at this moment. Continue rate control with current medication (4) Hypercholesteremia: Stable. Continue statin therapy (5) Hypothyroidism: Stable. Continue replacement therapy (6) Hydronephrosis: probably chronic. Serial labs. Monitor intake and output Plan Home today, February 18. He was instructed to continue stool softener, Colace 100 mg twice daily. He was also given a prescription for a wheeled walker Admission HPI Per Admitting Provider Mr. Richardson is a 78 year old Male, with P/M/H of Hypertension, Atrial fibrillation, Hyperlipidemia, Glucose intolerance, Venous insufficiency of BL lower limbs( S/P Ablation procedure on 2022). He presented to ED after being referred by his PCP for suspicion of bowel obstruction today. Presented to PCP office with H/o Constipation for 1 week. He says he is passing small pallets of stool but not good bowel movements like his baseline. Since same duration, his appetite has decreased and so the weight. He lost 10 pounds during this duration. He does not feel that his belly is abnormally distended compared to baseline. He is taking only liquid diet as he could not tolerate solids, which makes him more uncomfortable. He tried all possible OTC medicine including laxative/MiraLAX, fiber and prune juice. Nothing helped him clear his bowel. Endorses nausea and vomiting as well. He has swelling in his groin and scrotum, which is there since long time. He has not seeked any medical attention for this in past. Denies belly pain, fever, SOB, chest pain, back pain, syncope, bloody stool. . No similar episodes in past. His daughter on bedside mentions that he has been under adult diaper since long time for urine incontinence, No h/o trauma, no urinary surgery. He took all his medicine including Eliquis this morning, has been NPO after coming to hospital. Discussed about code status, he says he is fine with chest compression and medicine but not machines for saving life. PMH: Reviewed as above Surgical : H/O appendectomy, Wrist surgery, Venous GSV adhesive ablation (2022) Medication history: Reviewed Discharge Exam General-alert and oriented x3, no fever, no chills. Obese HEENT-head atraumatic and normocephalic, pupils equal and reactive to light, extraocular muscles intact Neck-no lymphadenopathy or thyromegaly, trachea midline Chest-clear to auscultation. No rales, wheezing or rhonchi Cardiac-regular rate and rhythm, normal S1 and S2 Abdomen-normal bowel sounds, no hepatosplenomegaly. Massive left inguinal hernia with scrotal involvement. Extremities-no cyanosis, clubbing. Chronic appearing bilateral lower extremity edema below the knees consistent with chronic venous insufficiency Neuro-cranial nerves II through XII intact, motor and sensory function within normal limits, strength symmetrical, no focal deficits Psych-normal affect, normal mood Discharge Plan Discharge Items Patient Disposition: Home - Self-Care Reason For Visit: INGUINAL HERNIA Discharge Diagnosis: Massive left inguinal/scrotal chronic hernia, constipation, chronic left hydronephrosis Activity: Resume your previous activity Non-emergency contact: Primary Care Provider Call non-emergency contact if: your symptoms worsen Follow-up/Referrals: Gurmeet Burr, [Primary Care Provider] - Diet: Regular and Heart Healthy Addtl Attending Provider Instructions: All medications remain the same. Take stool softener, docusate 100 mg, twice daily. See primary care provider as soon as possible for referral to general surgeon for elective repair of large inguinal hernia Pending Studies at Discharge: No Stand-Alone Forms: My ebookpie, Smoking Cessation Medications and DC Order Prescriptions: New docusate sodium 100 mg capsule 100 mg PO BID Qty: 1 0RF Continued fenofibrate nanocrystallized [Tricor] 48 mg tablet 48 mg PO QAM Qty: 90 3RF metoprolol succinate 25 mg tablet extended release 24 hr 25 mg PO DAILY Qty: 90 3RF losartan 100 mg tablet 100 mg PO DAILY Qty: 90 3RF levothyroxine 75 mcg tablet 75 mcg PO QAM Qty: 90 3RF Rx Instructions: TAKE 1 TABLET BY MOUTH EVERY DAY potassium chloride 10 mEq capsule, extended release See Rx Instructions .ROUTE .COMPLEX Qty: 90 3RF Dose Instruction: TAKE 1 CAPSULE BY MOUTH EVERY DAY FOR EDEMA TAKE DAILY WITH FUROSEMIDE DOSE Rx Instructions: TAKE 1 CAPSULE BY MOUTH EVERY DAY FOR EDEMA TAKE DAILY WITH FUROSEMIDE DOSE Eliquis 5 mg tablet 5 mg PO BID Qty: 180 3RF amlodipine 5 mg tablet 5 mg PO DAILY 90 Days Qty: 90 4RF rosuvastatin 20 mg tablet 20 mg PO DAILY Qty: 90 3RF furosemide 40 mg tablet 40 mg PO BID Qty: 60 11RF multivitamin Tablet 1 tab PO QAM Discharge Orders: Discharge Order (Routine); Ordered 02/19/24 Ordered By: Louie Goss Admission Data Admit Date/Time: 02/17/24 20:20 Attending Provider: Louie Goss Admit Provider: Mayte Salinas Primary Care Provider: Gurmeet Burr Other Providers: Scar Richardson; Fahad Torres Hospital Stay Data Consultations 02/17/24 18:40 Consult General Surgery Routine 02/17/24 19:15 ED Decision to Admit Stat Diagnostic Imagining Performed 02/17/24 17:15 CT abd pelvis IV con only Stat Pending Results Patient Have Any Pending Studies at Discharge: No Discharge Instructions Given to Patient (Per Discharging Provider) All medications remain the same. Take stool softener, docusate 100 mg, twice daily. See primary care provider as soon as possible for referral to general surgeon for elective repair of large inguinal hernia Total Time Total Time Spent Total Time Spent (In Minutes): 50 minutes Coding Level of Care Code 48695 INP/OBS DISCH >30 MIN Diagnoses Hypoxia R09.02 Left inguinal hernia K40.90 Atrial fibrillation I48.91 Hypercholesteremia E78.00 Hypothyroidism E03.9 Hydronephrosis N13.30
[2024-02-19] MEDS ORDERED: METOPROLOL TARTRATE 1 MG/ML VIAL IV SCH (12:00)
[2024-02-19 12:02] VITALS: BP 164/88; RESP 20; TEMP 98.4; O2SAT 93
[2024-02-19 12:58] VITALS: PULSE 76
== END 2024-02-19 15:01 | disposition home health service (06) | DRG 394 ==
LOC: ED 16:59 → SUATTDRO 20:20 → 2W 20:20